=== PATIENT | male | born 1965 | race African-American/Black ===

== ENCOUNTER 2016-08-15 11:33 | Emergency (ER) | payer MEDICAID ==
[2016-08-15 12:26] LABS: BASOPHILS 0.7 % (0.0-2.0); EOSINOPHILS 1.5 % (0-7); HEMATOCRIT 51.1 % (42.0-54.0); HEMOGLOBIN 17.3 g/dL (13.5-17.5); IMMATURE GRANULOCYTES 0.4 % (0-5); LYMPHOCYTES 44.5 % (15-50); MCH 29.9 pg (26.0-34.0); MCHC 33.9 g/dL (31.0-37.0); MCV 88.3 fL (80.0-100.0); MONOCYTES 6.9 % (2-11); PLATELET COUNT 286 10x3/uL (130-400); RBC 5.79 10x6/uL (4.20-6.10); RDW 14.2 % (11.5-14.5); WBC 10.3 10x3/uL (4.8-10.8)
[2016-08-15 12:43] LABS: ALBUMIN 4.1 g/dL (3.4-5.0); ALKALINE PHOSPHATASE 75 U/L (46-116); ALT (SGPT) 51 U/L (10-68); CALC OSMOLALITY 277 mosm/kg (275-300); CALCIUM 9.2 mg/dL (8.5-10.1); CARBON DIOXIDE 25.2 mmol/L (21.0-32.0); CHLORIDE - SERUM 104 mmol/L (98-107); CREATININE - SERUM 1.2 mg/dL (0.6-1.3); GLUCOSE 90 mg/dL (74-106); POTASSIUM - SERUM 3.9 mmol/L (3.5-5.1); PROTEIN - SERUM 7.7 g/dL (6.4-8.2); SODIUM 140 mmol/L (136-145); UREA NITROGEN 9 mg/dL (7-18); eGFR NON AFRICAN AMERICAN 68 mL/min (90-120)
[2016-08-15 12:55] LABS: CKMB 1.9 U/L (0.0-3.6); CREATINE KINASE 281 UL (21-232); TROPONIN-I < 0.017 ng/mL (0.000-0.060)
[2016-08-15 13:20] LABS: APPEARANCE CLEAR (CLEAR); BILIRUBIN NEGATIVE (NEGATIVE); COLOR YELLOW (YELLOW); GLUCOSE NEGATIVE (NEGATIVE); KETONE NEGATIVE (NEGATIVE); LEUKOCYTE ESTERASE TRACE (NEGATIVE); NITRITE NEGATIVE (NEGATIVE); PROTEIN 1+ mg/dL (NEGATIVE); UROBILINOGEN NORMAL (NORMAL)
[2016-08-15 13:24] LABS: BACTERIA FEW /hpf (NONE SEEN); EPITHELIAL CELLS 0-5 /hpf (0-5); RED CELLS - URINE OCC /hpf (0-5)
[2016-08-15 13:33] LABS: UDS - AMPHET NEGATIVE QUAL (NEGATIVE); UDS - BARB NEGATIVE QUAL (NEGATIVE); UDS - BENZO NEGATIVE QUAL (NEGATIVE); UDS - COCAINE NEGATIVE QUAL (NEGATIVE); UDS - METH NEGATIVE QUAL (NEGATIVE); UDS - OPIATE POSITIVE QUAL (NEGATIVE); UDS - PCP NEGATIVE QUAL (NEGATIVE); UDS - THC NEGATIVE QUAL (NEGATIVE)
[2016-08-19 08:19] LABS: CHLAMYDIA TRACHOMATIS, NAA Negative (Negative)
== END 2016-08-15 15:15 | disposition home or self-care (01) ==
LOC: D.ER 11:33
PROVIDERS: Emergency Medicine
DX: R07.89 Other chest pain (principal); N44.00 Torsion of testis, unspecified; A59.9 Trichomoniasis, unspecified; F17.200 Nicotine dependence, unspecified, uncomplicated

== ENCOUNTER → 2017-03-25 19:42 | Outpatient (CLI) | payer MEDICAID | END | disposition home or self-care (01) | LOC: D.SLEEP 19:42 | DX: G47.30 Sleep apnea, unspecified (principal) ==

== ENCOUNTER → 2020-03-06 08:37 | Outpatient (CLI) | payer MEDICAID ==
--- NOTE | ~2020-03-06 | EC ---
PATIENT:VANESSA SRINIVASAN SR DATE OF SERVICE: 03/06/20 SEX: M MEDICAL RECORD: [id number] DATE OF : 65 LOCATION:[facility] AGE OF PATIENT: 55 ADMISSION DATE: 03/06/20 REFERRING PHYSICIAN: INTERPRETING PHYSICIAN: NO LIZAMA MD ECHOCARDIOGRAM REPORT ECHO CHARGES 4 ECHO COMPLETE Date: 03/06/20 CLINICAL DIAGNOSIS: ANGINA/HEART MURMUR ECHOCARDIOGRAPHIC MEASUREMENTS (adult normal given) AC root (d.<3.7cm) 3.4 cm LV Septum d (<1.2 cm> 1.4 cm Valve Excursion 1.7 cm LV Septum (systole) 1.7 cm Left Atria (s.<4.0cm> 3.5 cm LVPW d(<1.2cm) 1.5 cm RV (d.<2.3cm) 4.8 cm LVPW (sytole) 1.7 cm LV diastole(<5.6CM) 4.6 cm MV E-F(>70mm/sec) cm LV systole 2.8 cm LVOT Diameter 2.0 cm MV exc.(>10mm) 1.6 cm Est.ejection fraction (50-75%) % DOPPLER: LVIT cm/sec A 77.0 cm/sec E 64.0 cm/sec LA cm/sec RVSP 45 mmHg LVOT 87 cm/sec AOP1/2T 850 m/s Asc. Ao 131 cm/sec RVOT 78 cm/sec RA cm/sec PA 118 cm/sec AV Gradient Peak 6.83 mmHg AV Mean 4.09 mmHg AV Area 2.2 cm MV Gradient Peak 2.99 mmHg MV Mean 1.29 mmHg MV Area cm COMMENTS: Field Spec: 2 MAITE BANERJEE Loan Originator: 3 Dr. Valencia TAPE# PACS Pericardial Effusion N DATE OF SERVICE: Adequate 2D, color flow imaging, spectral Doppler, and M-Mode. No LVH is present. LV internal dimension is normal. Wall motion is normal. EF is greater than or equal to 55%. Aortic valve is tricuspid. No evidence of stenosis by Doppler interrogation. Mild AI by color flow imaging. Left atrium is normal at 3.5 cm. Mitral valve shows no prolapse. Trace MR. Right-sided chambers are grossly normal. Mild TR. ECHOCARDIOGRAM REPORT [id number] VANESSA SRINIVASAN TRANSINT:[id number] Voice Confirmation ID: [id number] DOCUMENT ID: [id number] NO LIZAMA MD CC: [id number] DICTATION DATE: 03/08/20 152 MEAT SALES AND STORAGE MANAGER: 03/08/202039 DEP CLI 03/06/20 [facility] [address] [place] [place] [id number]
== END | disposition home or self-care (01) ==
LOC: D.HCCECHO 08:30
PROVIDERS: ATTEND Internal Medicine Cardiovascular Disease
DX: I20.9 Angina pectoris, unspecified (principal)

== ENCOUNTER 2020-03-21 06:55 | Day surgery (SDC) | payer MEDICAID ==
[~2020-03-21] VITALS: Ht 177.8 cm; Wt 104.2 kg
--- NOTE | ~2020-03-21 | HEMODYNAMI ---
PATIENT:VANESSA SRINIVASAN SR MEDICAL RECORD: [id number] : 65 LOCATION:[facility] ADMISSION DATE: 03/21/20 Generatedon:03/21/202010:38 Patient name: VANESSA SRINIVASAN Patient #: [id number] SSN: [id number] : 1965 Date of study: 03/21/2020 Page: Of Hemodynamic Procedure Report Patient Data Patient Demographics Procedure consent was obtained First Name: VANESSA Gender: Male Last Name: CRAIG Suffix: [facility] Initial: KASSIDY : 1965 Patient #: [id number] Age: 55 year(s) Race: Black SSN: [id number] Additional ID: [id number] Contact details [address]: [address] [place] [address] State: [place] City: [place] Zip code: [address] Past Medical History Allergies Allergen Reaction Date Comments Reported Other allergy 03/21/2020 lisinopril Admission Admission Data Admission Date: 03/21/2020 Admission Time: 6:55 Arrival Date: 03/21/2020 Arrival Time: 0:00 Admit Source: Other Insurance Payor: Private health insurance [facility] #: [id number] Height (in.): 69 BSA: 2.17 (m2) Height (cm.): 175.26 BMI: 33.23 (kg/m2) Weight (lbs.): 225 Weight (kg.): 102.06 Lab Results Lab Result Date: 03/21/2020 Lab Result Time: 8:15 Biochemistry Name Units Result Min Max BUN mg/dl 11 --(-*--)-- 7 18 Creatinine mg/dl 1.1 --(--*-)-- 0.6 1.3 eGFR ml/min 88.98647 -*(----)-- 90 120 AM CBC Name Units Result Min Max Hematocrit % 44.1 --(*---)-- 42 54 Hemoglobin g/dl 14.5 --(*---)-- 13.5 17.5 Procedure Procedure Types Cath Procedure Diagnostic Procedure LHC LH w/Coronaries FFR/IVUS FFR Initial Sedation Charges Moderate Sedation up to 30 minutes PCI Procedure Coronary Stent Coronary Stent Initial Hemochron ACT Test Procedure Description Procedure Date Procedure Date: 03/21/2020 Procedure Start Time: 10:03 Procedure End Time: 10:36 Procedure Staff Name Function Bj Felder MD Performing Physician Rudolph Cooper RT Monitor Nicole Bateman RT Scrub Nik Chua RN Nurse Procedure Data Cath Procedure Fluoroscopy Diagnostic fluoroscopy Total fluoroscopy Time: 4.5 time: 4.5 min min Diagnostic fluoroscopy Total fluoroscopy dose: 832 dose: 832 mGy mGy Contrast Material Contrast Material Type Amount (ml) Isovue 300 142 Entry Location Entry Primary Successful Side Size Upsize Upsize Entry Closure Puckett ccessful Closure Location (Fr) 1 (Fr) 2 (Fr) Remarks Device Remarks Radial Right 6 Fr Mechanical artery Short Compression Estimated blood loss: 10 ml Diagnostic catheters Device Type Used For End Catheter Placement DIAGNOSTIC Bonner 110cm 5 Procedure Fr catheter ([id number]) Procedure Complications No complications Procedure Medications Medication Administration Route Dosage Oxygen etCO2 Nasal cannula 2 l/min Lidocaine 2% added to field 20 Heparin Flush Bag added to field 2 bags (1000units/500ml NS) 0.9% NaCl I.V. 100 ml/hr Versed I.V. 2 mg Fentanyl I.V. 100 mcg Versed I.V. 2 mg Fentanyl I.V. 100 mcg Versed I.V. 2 mg Fentanyl I.V. 50 mcg Heparin Bolus I.V. 3000 units Heparin Bolus I.V. 2000 units Integrilin (Bolus I.V. 9.5 ml 2mg/ml) Fentanyl I.V. 50 mcg Plavix P.O. 600 mg Hemodynamics Rest BSA: 2.17 (m2) HGB: 14.5 (g/dl) O2 Consumption: Estimated: 255 (ml/min) O2 Consu mption indexed: Estimated:117.51 (ml/min/m) Heart Rate: 67 (bpm) Pressure Samples Time Site Value (mmHg) Purpose Heart Use Rate(bpm) 10:06 LV 92/5,5 Snapshot 75 10:06 AO 104/75(90) Pullback 81 Gradients Valve Time Site Site 2 Mean SEP/DFP Peak To Heart Use 1 (mmHg) (sec/min) Peak Rate (mmHg) (bpm) Aortic 10:06 LV AO 81 104/75(90) Snapshots Pre Cath Intra NCS Post Cath Vital Signs Time Heart Resp SPO2 etCO2 NIBP (mmHg) Rhythm Pain Sedation Rate (ipm) (%) (mmHg) Status Level (bpm) 9:46:01 66 26 99 37.2 140/86(114) NSR 0 (11) 10(A) , No pain 9:50:17 74 32 95 39.5 135/87(109) NSR 0 (11) 10(A) , No pain 9:54:31 67 26 96 38 133/85(103) NSR 0 (11) 10(A) , No pain 9:58:47 73 13 95 41 121/78(91) NSR 0 (11) 10(A) , No pain 10:02:57 70 12 94 41.8 130/85(113) NSR 0 (11) 10(A) , No pain 10:07:03 73 22 93 37.3 102/76(97) NSR 0 (11) 9(A) , No pain 10:11:11 76 14 93 43.3 115/73(99) NSR 0 (11) 9(A) , No pain 10:15:18 76 19 94 42.6 117/72(98) NSR 0 (11) 9(A) , No pain 10:19:28 76 24 94 41.8 118/77(94) NSR 0 (11) 9(A) , No pain 10:23:36 76 14 94 41 117/74(101) NSR 0 (11) 10(A) , No pain 10:27:48 73 13 95 44.1 124/79(98) NSR 0 (11) 10(A) , No pain 10:31:58 43.3 118/71(100) NSR 0 (11) 10(A) , No pain 10:35:58 0 No Cuff NSR 0 (11) 10(A) , No pain Medications Time Medication Route Dose Verified Delivered Reason Notes Effectiveness by by 9:49:52 Oxygen etCO2 2 Bj Zaragoza used for Nasal l/min St Dejon Chua elevator erector helper cannula 9:49:59 Lidocaine 2% added 20ml Bj Lorenzo for local to vial St Dejon Felder anesthetic field MD COTTO 9:50:06 Heparin Flush added 2 Bj Bj used for Bag to bags EmeritaDejon Felder procedure (1000units/500ml field MD COTTO NS) 9:50:15 0.9% NaCl I.V. 100 Bj Buffie Per physician ml/hr St Dejon Chua RN, MD 9:55:58 Versed I.V. 2 mg Bj Ionie for sedation St Dejon Chua RN, MD 9:56:04 Fentanyl I.V. 100 Bj Buffie for sedation mcg [address] Dejon Chua RN, MD 10:02:18 Versed I.V. 2 mg Bj Buffie for sedation St Dejon Chua RN, MD 10:02:22 Fentanyl I.V. 100 Bj Buffie for sedation mcg St Dejon Chua RN, MD 10:09:28 Versed I.V. 2 mg Bj Buffie for sedation St Dejon Chua RN, MD 10:09:33 Fentanyl I.V. 50 Bj Buffie for sedation mcg St Dejon Chua RN, MD 10:12:59 Heparin Bolus I.V. 3000 Bj Lemonie for verif ied units St Dejon Chua RN anticoagulation with dr MD mitchell 10:19:02 Heparin Bolus I.V. 2000 Bj Buffie for verif ied units St Dejon Chua RN anticoagulation with dr MD mitchell 10:21:18 Integrilin I.V. 9.5 Bj Buffie for waste d (Bolus 2mg/ml) ml St Dejon Chua RN antiplatelet 0.5 ml MD therapy of vial 10:26:37 Fentanyl I.V. 50 Bj Ionie for sedation mcg St Dejon Chua RN, MD 10:28:34 Plavix P.O. 600 Bj Zarago[address] for mg St Dejon Chua RN antiplatelet therapy Procedure Log Time Note 9:23:08 Patient Height : 69 inches 9:23:08 Patient Weight : 225 lbs 9:26:07 Informed consent obtained and on chart 9:26:54 Lab Result : Hemoglobin 14.5 g/dl 9:26:54 Lab Result : Creatinine 1.1 mg/dl 9::54 Lab Result : BUN 11 mg/dl 9:26:54 Lab Result : Hematocrit 44.1 % 9:28:28 Procedure Status Elective Heart Cath (OP). 9:28:31 ACC Patient presents with Stable Angina CCS Anginal Class 2--Slight limitation of ordinary activity. 9:29:02 ACCPatient has been prescribed/administered the following anti-anginal medication within the last 2 weeks: ARB 9:29:13 Nik Chua RN sent for patient. Start room use. 9:29:14 Time tracking: Regular hours (M-F 7:00 - 5:00) 9:29:20 Plan of Care:Hemodynamics will remain stable., Cardiac rhythm will remain stable., Comfort level will be maintained., Respiratory function will remain adequate., Patient/ family verbilizes understanding of procedure., Procedure tolerated without complication., Recovers from procedure without complications.. 9:29:32 H&P Date Dictated: 02/21/2020 Within 30 days and on chart., H&P Addendum completed by physician on day of procedure. (MUST COMPLETE FOR ALL OUTPATIENTS). 9:36:45 Patient received from Pre/Post Procedure Room to CCL 1 Alert and oriented. Tansferred to table in Supine position. 9:36:46 Warm blankets applied, and tyler hugger turned on for patient comfort. 9:36:47 Correct patient and procedure confirmed by team. 9:36:48 ECG and BP/O2 sat monitors applied to patient. 9:36:49 Pre-procedure instructions explained to patient. 9:36:50 Pre-op teaching completed and patient verbalized understanding. 9:36:51 Family in waiting room. 9:36:52 Patient NPO since Midnight. 9:37:11 Lab Result : eGFR AM 88.70168 ml/min 9:44:55 Vital chart was started 9:49:52 Oxygen 2 l/min etCO2 Nasal cannula was administered by Nik Chua RN; used for procedure; Verbal order read back and verified. 9:49:59 Lidocaine 2% 20ml vial added to field was administered by Bj Felder MD; for local anesthetic; Verbal order read back and verified. 9:50:06 Heparin Flush Bag (1000units/500ml NS) 2 bags added to field was administered by Bj Felder MD; used for procedure; Verbal order read back and verified. 9:50:15 0.9% NaCl 100 ml/hr I.V. was administered by Nik Chua RN; Per physician; Verbal order read back and verified. 9:53:50 Baseline sample Acquired. 9:53:53 Rhythm: sinus rhythm 9:53:54 Full Disclosure recording started 9:54:14 Patient allergic to Other allergylisinopril 9:54:17 Is the patient allergic to Iodine/contrast media? No. 9:54:17 Is patient on blood thinner?No 9:54:19 Patient diabetic? No. 9:54:23 Previous problem with sedation/anesthesia? No ? 9:54:29 Snore? Yes 9:54:30 Sleep apnea? No 9:54:30 Deviated septum? No 9:54:31 Opens mouth fully? Yes 9:54:32 Sticks out tongue? Yes 9:54:33 Airway obstruction? No ? 9:54:35 Dentures? No ? 9:54:39 Pre procedure: right dorsailis pedis pulse 2+ Normal; easily identifiable; not easily obliterated 9:54:44 Modified Ashok's test Ulnar > 7 seconds. 9:54:45 Patient pain scale 0/10 ?. 9:54:53 IV patent on arrival in left forearm with 0.9% NaCl at KVO. 9:54:54 Lab results completed and on chart. 9:55:02 Stress Test: yes; abnormal inferior apical 9:55:38 Right Radial & Right Groin area was prepped with chlora-prep and draped in sterile fashion 9:55:43 Alarms reviewed by R. N. 9:55:43 Sharps counted by scrub and verified by R.N. 9:55:47 Physician arrived 9:55:47 --------ALL STOP TIME OUT------ 9:55:48 Final Timeout: patient, procedure, and site verified with staff and physician. All members of the team are in agreement. 9:55:51 Right Radial & Right Groin site verified by team. 9:55:54 Fire Safety Assessment: A--An alcohol-based skin anteseptic being used preoperatively., C--Open oxygen or nitrous oxide is being used., D--An ESU, laser, or fiber-optic light is being used. 9:55:58 Versed 2 mg I.V. was administered by Nik Chua RN; for sedation; Verbal order read back and verified. 9:56:02 Physical assessment completed. ASA score P 2 - A patient with mild systemic disease as per Bj Felder MD. 9:56:04 Fentanyl 100 mcg I.V. was administered by Buffie Chua RN; for sedation; Verbal order read back and verified. 9:56:08 2) 60-89 Mildly reduced kidney function, and other findings (as for stage 1) point to kidney disease. 9:56:30 Maximum allowable contrast dose (3.7 X eGFR X 0.75)246 ml. 9:56:34 Sedation plan: IV Moderate Sedation Medication:Versed, Fentanyl 9:56:38 Use device set Radial Dx or PCI 9:56:39 ACIST Syringe (38536) opened to sterile field. 9:56:40 Medline Cath Pack ([id number]) opened to sterile field. 9:56:40 Bag Decanter (2002S) opened to sterile field. 9:56:40 ACIST Hand Control (41910) opened to sterile field. 9:56:41 ACIST Manifold (84346) opened to sterile field. 9:56:41 Tegaderm 4 x 4 (1626W) opened to sterile field. 9:56:43 MBrace Wrist Support ([id number]) opened to sterile field. 9:56:45 SHEATH 6FR RAIN (0323916) opened to sterile field. 9:56:47 EMERALD Guide Wire (624-614) opened to sterile field. 9:58:48 Zero performed for pressure channel P1 9:58:51 Zero performed for pressure channel P1 10:02:18 Versed 2 mg I.V. was administered by Nik Chua RN; for sedation; Verbal order read back and verified. 10:02:22 Fentanyl 100 mcg I.V. was administered by Nik hCua RN; for sedation; Verbal order read back and verified. 10:03:11 Procedure started. 10:03:18 Local anesthetic to right radial artery with Lidocaine 2% by Bj Felder MD.INITIAL ACCESS ONLY 10:03:29 A 6 Fr Short sheath was inserted into the Right Radial artery 10:05:44 A DIAGNOSTIC Bonner 110cm 5 Fr catheter (031937) was advanced over the wire and used for Procedure. 10:06:24 LV gram done using MUELLER 10:06:27 Injector settings: Ml/sec: 5, Volume: 15, 10:06:46 LV hemodynamics recorded. 10:06:50 EF : 55 % 10:07:25 RCA angiography performed. 10:08:14 Catheter exchanged over wire. 10:08:21 GUIDE 6FR XBLAD 3.5 catheter ([id number]) opened to sterile field. 10:08:30 6 Fr xblad 3.5 guide catheter was inserted over the wire 10::28 Versed 2 mg I.V. was administered by Nik Chua RN; for sedation; Verbal order read back and verified. 10::33 Fentanyl 50 mcg I.V. was administered by Nik Chua RN; for sedation; Verbal order read back and verified. 10:09:35 LCA angiography performed. 10:11:14 [place] Verrata Plus pressure wire (72206P) opened to sterile field. 10:11:15 INFLATOR Merit BasixCompak (ZG0127) opened to sterile field. 10:12:59 Heparin Bolus 3000 units I.V. was administered by Nik Chua RN; for anticoagulation; verified with dr mitchell Verbal order read back and verified. 10:16:25 FFR/IFR wire advanced. 10:18:58 Wire advanced across lesion. 10:19:02 Heparin Bolus 2000 units I.V. was administered by Nik Chua RN; for anticoagulation; verified with dr mitchell Verbal order read back and verified. 10:19:20 pLAD lesion measured at 0.82 with IFR 10:21:12 ACC Pre-intervention FLORENCIA Flow is 3. 10:21:17 Pre PCI Site: [place] pLAD has 80% stenosis. 10:21:18 Integrilin (Bolus 2mg/ml) 9.5 ml I.V. was administered by Nik Chua RN; for antiplatelet therapy; wasted 0.5 ml of vial Verbal order read back and verified. 10:23:58 Place stent Inflation Number: 1 A RAFAT RX 3.0 x 18 stent ([id number]) was prepped and advanced across the Prox LAD 80. The stent was deployed at 14 SWAPNA for 0:30 (min:sec) 0. 10:24:07 Stent catheter was removed intact over wire. 10:24:09 ACC Post-intervention FLORENCIA Flow is 3. 10:24:14 Post PCI Site: [place] pLAD has 0% stenosis. 10:24:18 Wire removed. 10:24:19 Guide catheter removed. 10:24:25 ZEPHYR LARGE TR BAND (711406) opened to sterile field. 10:24:33 Sheath removed intact; hemostasis achieved with Mechanical Compression to the Right Radial artery. 10::34 Procedure ended.(Physican Out) 10:25:12 Fluoroscopy time 04.50 minutes. 10:25:16 Fluoroscopy dose: 832 mGy 10:25: Flurop Dose total: 832 10:25: Dose Area Product 44479 mGy/cm. 10:25:27 Contrast amount:Isovue 300 142ml. 10:25:29 Maximum allowable dose exceeded? No. 10:25:30 Sharps counted by scrub and verified by R.N. 10:25:36 [place] band inflated with 12cc of air. 10:25:37 Insertion/operative site no bleeding no hematoma. 10::29 Post right radial artery:stable, soft, clean and dry 10::30 Post Procedure Pulses reassessed and unchanged 10::32 Post-procedure physical assessment completed. ASA score P 2 - A patient with mild systemic disease as per Bj Felder MD. 10::34 Post procedure rhythm: unchanged. 10::37 Fentanyl 50 mcg I.V. was administered by Nik Chua RN; for sedation; Verbal order read back and verified. 10:26:39 Estimated blood loss: 10 ml 10::41 Post procedure instruction explained to patient.Patient verbalizes understanding. 10::41 Patient needs reinforcement of post procedure teaching. 10:27:22 Procedure type changed to Cath procedure, Diagnostic procedure, C, [facility] w/Coronaries, FFR/IVUS, FFR Initial, Sedation Charges, Moderate Sedation up to 30 minutes, PCI procedure, Coronary Stent, Coronary Stent Initial, Hemochron ACT Test 10:28:24 ACT drawn and resulted at 244 seconds. (normal therapeutic range 180-240 seconds). 10:28:34 Plavix 600 mg P.O. was administered by Nik Chua RN; for antiplatelet therapy; Verbal order read back and verified. 10:36:11 Procedure and supply charges have been captured, reviewed, submitted and are correct. 10:36:13 Procedure Complication : No complications 10:36:16 [facility] Findings: MVD- PCI performed (see procedure note) 10:36:24 Operative report dictated upon procedure completion. 10:36:24 See physician's report for complete and final results. 10:36:26 Report given to Pre/Post Procedure Room. 10:36:28 Patient transfered to Pre/Post Procedure Room with Stretcher. 10:36:30 Procedure ended. 10:36:30 Full Disclosure recording stopped 10:36:36 ACC-PCI Only Patient was given prescriptions, or instructed by Bj Felder MD to start/continue the following medications upon discharge: Aspirin, Plavix 10:36:38 End room use (Document Last) 10:36:50 End room use (Document Last) 10:37:23 Nicole Bateman RT(R) was relieved by Nik Chua RN as monitoring person 10:37:23 End room use (Document Last) 10:37:49 End room use (Document Last) 10:37:49 Nik Chua RN was relieved by Rudolph Cooper RT(R) as monitoring person 10:38:04 Vital chart was stopped Intervention Summary Intervention Notes Time ActionType Lesion and Equipment Used Action# Pressure Duration Attributes 10:23:58 Place stent Prox LAD RAFAT RX 3.0 x 1 14 00:30 18 stent ([id number]) Device Usage Item Name Manufacture Quantity Catalog Hospital Part Current Minimal Lot# / Number Charge Number Stock Stock Serial# Code ACIST Syringe Acist 1 73738 175455 597686 026038 20 (81817) Medical Systems Inc Medline Cath Medline 1 [id number] 07740 769436 5 Pack ([id number]) Bag Decanter Microtek 1 2002S 765886 16135 824397 5 (2001S) Medical Inc. ACIST Hand Acist 1 90067 310395 403154 989575 5 Control Medical (04521) Systems Inc ACIST Manifold Acist 1 33670 787530 138825 148752 5 (03708) Medical Systems Inc Tegaderm 4 x 4 3M 1 1626W 437933 914751 398552 5 (1626W) MBrace Wrist Advanced 1 140-0250-00 641299 30427 070132 5 Support Vascular ([id number]) Dynamics SHEATH 6FR Cardinal 1 2809511 977732 1039435 157794 5 RAIN (9602928) [facility] EMERALD Guide Cardinal 1 502-455 547425 376771 932776 5 Wire (681-105) Health DIAGNOSTIC Terumo 1 40-1143 255742 099812 566283 5 Bonner 110cm 5 Fr catheter (825236) GUIDE 6FR Cardinal 1 19263975 016864 850161 884730 10 XBLAD 3.5 Health catheter (73379192) Darien Darien 1 09782Y 078054 972158714 585995 5 Verrata Plus pressure wire (23017W) INFLATOR Merit Merit 1 UM5283 633498 482203 037945 15 BasixHealios K.KwyZscaler Medical (GT1797) RAFAT RX 3.0 x Medtronic 1 [id number] 089925 4359867 091437 5 [id number] 18 stent ([id number]) ZEPHYR LARGE Cardinal 1 449790 054885 3304119 067616 5 [employer] ([place] Medicine Technology (186250) Signature Audit [place] Stage Time Signature Unsigned Intra-Procedure 03/21/2020 Rudolph Cooper 10:36:50 AM RT(R) Intra-Procedure 03/21/2020 Nik Chua RN 10:37:40 AM Intra-Procedure 03/21/2020 Bj Zaragoza 10:38:03 AM Dejon COTTO [facility] [address] [place] [address]
[2020-03-21] MEDS ORDERED: LIPITOR20 MG PO (07:50)
[2020-03-21] MEDS ORDERED: ATARAX 25 MG TA25 MG PO (07:50)
[2020-03-21] MEDS ORDERED: KLONOPIN1 MG PO (07:51)
[2020-03-21] MEDS ORDERED: COZAAR50 MG PO (07:51)
[2020-03-21] MEDS ORDERED: ZOLOFT50 MG PO (07:51)
[2020-03-21 08:27] VITALS: BP 135/90; Ht 177.8 cm; Wt 104.2 kg
[2020-03-21 08:31] LABS: BASOPHILS 0.9 % (0-2); EOSINOPHILS 11.5 % (0-7); HEMATOCRIT 44.1 % (42.0-54.0); HEMOGLOBIN 14.5 g/dL (13.5-17.5); IMMATURE GRANULOCYTES 0.5 % (0-5); LYMPHOCYTES 32.6 % (15-50); MCH 29.1 pg (26.0-34.0); MCHC 32.9 g/dL (31.0-37.0); MCV 88.6 fL (80.0-100.0); MEAN PLATELET VOLUME 8.5 fL (7.4-10.4); MONOCYTES 6.7 % (2-11); NEUTROPHILS 47.8 % (40-80); PLATELET COUNT 302 10x3/uL (130-400); RBC 4.98 10x6/uL (4.20-6.10); RDW 14.8 % (11.5-14.5); WBC 10.9 10x3/uL (4.8-10.8)
[2020-03-21 08:41] LABS: ANION GAP 11.8 mmol/L (8-16); CALCIUM 8.7 mg/dL (8.5-10.1); CARBON DIOXIDE 27.6 mmol/L (21.0-32.0); CHOL - HDL RATIO 2.8 ratio (2.3-4.9); CREATININE - SERUM 1.1 mg/dL (0.6-1.3); LDL-HDL RATIO 1.5 ratio (1.5-3.5); POTASSIUM - SERUM 4.4 mmol/L (3.5-5.1)
--- NOTE | 2020-03-21 10:40 | NUR ---
PT RECEIVED VIA STRETCHER FROM BUSINESS TEAM LEADER FOR RECOVERY. PT SLEEPING BUT VERBALLY AROUSABLE. NO C/O PAIN OR DISCOMFORT. PT PLACED ON CARDIAC MONITORS AND O2 VIA NC AT 2L. HR NSR RATE 68, BP 126/80, RR 11, SAT 96. IV PATENT INFUSING VIA L ARM PER ORDERS. ZYPHER BAND AND IMMOBILIZER TO R WRIST/ARM, NO BLEEDING OR S/S HEMATOMA NOTED. ARM PINK AND WARM, CAP REFILL BRISK. PT INSTRUCTED NOT TO USE ARM. DR LIZAMA AT , DISCUSSED PLAN OF CARE AND PROCEDURE RESULTS WITH S/O. CALL LIGHT IN REACH
[2020-03-21] MEDS ORDERED: BAYER CHEWABLE81 MG PO (10:44)
[2020-03-21] MEDS ORDERED: PLAVIX75 MG PO (10:44)
--- NOTE | 2020-03-21 11:00 | NUR ---
PT SLEEPING COMFORTALBY, NO C/O PAIN OR DISCOMFORT. ZBAND AND IMMOBILIZER IN PLACE, DRESSING CDI NO S/S HEMATOMA OR BLEEDING NOTED. CALL LIGHT IN REACH.
--- NOTE | 2020-03-21 11:22 | NUR ---
PT DISCHARGED VIA WC TO WAITING IN PRIVATE VEHICLE. PT HAD ALL BELONGINGS AND DISCHARGE PAPERWORK
--- NOTE | 2020-03-21 11:45 | NUR ---
PT CONTINUES SLEEPING. VSS AT PRESENT. ZBAND AND IMMOBILIZER IN PLACE, NO S/S HEMATOMA OR BLEEDING NOTED. CALL LIGHT IN REACH, S/O AT BS
--- NOTE | 2020-03-21 12:15 | NUR ---
PT MORE AWAKE, REQUESTED URINAL. ZBAND IN PLACE, NO S/S HEMATOMA NOTED. ARM PINK AND WARM, CAP REFILL BRISK. CALL LIGHT IN REACH
--- NOTE | 2020-03-21 12:45 | NUR ---
PT VOIDED 600 CC CLEAR YELLOW URINE VIA URINAL. ZBAND AND IMMOBILIZER IN PLACE, NO S/S HEMATOMA. CALL LIGHT IN REACH, S/O AT BEDSIDE.
--- NOTE | 2020-03-21 13:07 | NUR ---
ZBAND AND IMMOBILIZER IN PLACE, DRESSING CDI NO S/S HEMATOMA. HOB ELEVATED. O2 REMOVED, SAT 97 ON ROOM AIR. SANDWICH AND DRINK SERVED. VSS. CALL LIGHT IN REACH
--- NOTE | 2020-03-21 13:35 | NUR ---
5cc AIR REMOVED FROM ZBAND, NO BLEEDING NOTED. PT DENIES PAIN OR NEEDS AT THIS TIME. TOLERATING PO SOLIDS AND FLUIDS W/O DIFFICULITY. VSS, CALL LIGHT IN REACH.
--- NOTE | 2020-03-21 14:00 | NUR ---
2CC AIR REMOVED FROM Z BAND, NO BLEEDING OR S/S HEMATOMA NOTED.
--- NOTE | 2020-03-21 14:27 | NUR ---
DISCHARGE INSTRUCTIONS REVIEWED W PT AND S/O, BOTH VERBALIZED UNDERSTANDING. EXPLAINED IMPORTANCE OF GETTING PLAVIX FILLED AND STARTING THAT AND ASPRIN TOMORROW. IV REMOVED W CATH INTACT, MONITORS REMOVED. PT UP TO DRESS W ZBAND AND IMMOBILIZER IN PLACE.
--- NOTE | 2020-03-21 14:30 | NUR ---
300 CC URINE OUT VIA URINAL.
--- NOTE | 2020-03-21 14:43 | NUR ---
ZBAND REMOVED W/O BLEEDING NOTED. 2X2 AND SM TEGADERM DRESSING APPLIED. IMMOBILIZER RE POSITIONED. PT DISCHARGED VIA WC TO S/O WAITING IN PRIVATE VEHICLE. PT HAD ALL BELONGINGS AND DISCHARGE PAPERWORK
--- NOTE | 2020-03-22 08:21 | OP ---
PATIENT NAME: VANESSA SRINIVASAN SR MEDICAL RECORD: [id number] :65 LOCATION:D.CAT ADMISSION DATE: SURGEON: NO LIZAMA MD DATE OF OPERATION: 03/21/2020 PROCEDURE: Left heart catheterization, selective coronary angiography plus IFR wire plus GRANITE WORKER stenting to the LAD, right radial approach. CATHETERS: Radial sheath and [place] catheter. The procedure was well tolerated. The patient returned to the zavaleta. Sheath removed. TR band was placed. FINDINGS: Left ventriculography in 30-degree MUELLER view: Normal wall motion. Normal systolic function. CORONARY ANATOMY: LEFT MAIN: Free of disease. LAD: Questionable stenosis in its mid portion. This confirmed his flow restricted with IFR of 0.82. CIRCUMFLEX: Free of disease. RIGHT CORONARY ARTERY: Codominant system, free of disease. IMPRESSION: Single-vessel disease, confirmed via IFR wire. PLAN: Intervention momentarily. DESCRIPTION OF PROCEDURE: Using the indwelling IFR wire, we placed a 3.0 x 18 mm [place] drug-eluting stent up to 14 atmospheres for 45 seconds. Final angiography shows excellent resolution of 80% stenosis. No significant residual. FLORENCIA flow was 3 throughout the procedure. Heparin and Integrilin were used during the case. Sheath was closed with ExoSeal device. NTS:[id number] Voice Confirmation ID: [id number] DOCUMENT ID: [id number] NO LIZAMA MD at 0821 CC: [id number] DICTATION DATE: 03/21/20 1035 SENIOR STORAGE ENGINEER: 03/21/20 1759 [facility] 03/21/20 [id number] [place] [address]
== END 2020-03-21 14:35 | disposition home or self-care (01) ==
LOC: D.CATH 06:55
PROVIDERS: ATTEND Internal Medicine Interventional Cardiology
DX: R07.9 Chest pain, unspecified (principal); I20.9 Angina pectoris, unspecified; E78.5 Hyperlipidemia, unspecified; E01.1 Iodine-deficiency related multinodular (endemic) goiter; I10 Essential (primary) hypertension; R94.39 Abnormal result of other cardiovascular function study